=== PATIENT | male | born 1970 | race Caucasian/White ===

== ENCOUNTER 2018-12-25 12:42 | Day surgery (SDC) | payer MEDICAID ==
[2018-12-25] MEDS ORDERED: LIDO/EPI 1% **Not for Epidural 20 ML MDV ONE (12:44)
[2018-12-25] MEDS ORDERED: LIDOCAINE 1% 300 MG/30 ML SDV ONE (12:45)
[2018-12-25] MEDS ORDERED: EPINEPHrine 30 MG/30 ML MDV (0.1 MG/0.1 ML) ONE (12:45)
[2018-12-25] MEDS ORDERED: OXYMETAZOLINE 30 ML NASAL SPRAY ONE ×2 (12:46→13:26)
[2018-12-25] MEDS ORDERED: LR 1,000 ML IV ONE (13:02)
[2018-12-25 13:31] LABS: PLATELET COUNT 174 10^3/uL (150-400)
[2018-12-25 13:39] LABS: INR 0.96 (0.83-1.16); PROTIME(PATIENT) 12.4 SEC (12.0-15.0)
--- NOTE | 2018-12-25 15:04 | PDGENHP ---
History & Physical Chief Complaint: Nasal obstruction History of Present Illness: septal deviation, trubinate hypertrophy Pertinent Past, Social, Family History: Reviewed Relevant Physical Exam: A&O, NAD. Nasal obstruction Cardiorespiratory Assessment: Appropriate for procedure.
[2018-12-25] MEDS ORDERED: OXYMETAZOLINE 30 ML NASAL SPRAY EACHNARE ONE (16:00)
--- NOTE | 2018-12-25 16:08 | PDANEPAE ---
ANE Past Medical History - Cardiovascular History Hx Hypertension: No Hx Arrhythmias: No Hx Chest Pain: No Hx Coronary Artery / Peripheral Vascular Disease: No Hx CHF / Valvular Disease: No Hx Palpitations: No Cardiovascular History Comment: elevated HR with colonoscopy- was sent to ER for rehydration - Pulmonary History Hx COPD: No Hx Asthma/Reactive Airway Disease: No Hx Recent Upper Respiratory Infection: No Hx Oxygen in Use at Home: No Hx Sleep Apnea: Yes Sleep Apnea Screening Result - Last Documented: Negative Pulmonary History Comment: pt states "he is sob at times". chronic cough from reflux - Neurologic History Hx Cerebrovascular Accident: No Hx Seizures: No Hx Dementia: No Neurologic History Comment: 2012 with onset of pancreatitis, he feels like he had a seizure/ convulsions d/t electrolyte imbalance - Endocrine History Hx Diabetes: No - Renal History Hx Renal Disorders: No - Liver History Hx Hepatic Disorders: Yes Hepatic History Comment: Alcohol-induced cirrhosis - Neurological & Psychiatric Hx Hx Neurological and Psychiatric Disorders: Yes Neurological / Psychiatric History Comment: hx of depression. anxiety - Cancer History Hx Cancer: No - Congenital Disorder History Hx Congenital Disorders: No - GI History Hx Gastrointestinal Disorders: Yes Gastrointestinal History Comment: severe reflux per pt report. Hx Pancreatitis. Alcoholic gastritis. chronic diarrhea - Other Health History Other Health History: wears reading glasses - Chronic Pain History Chronic Pain: Yes (back) - Surgical History Prior Surgeries: tonsillectomy. hernia repair 20 yrs ago. hernia repair 2017. pin to right thumb. colonoscopy. pe tubes as child ANE Review of Systems Review of Systems: - Exercise capacity METS (RN): 4 METS ANE Patient History - Allergies Allergies/Adverse Reactions: amoxicillin [Amoxicillin] Allergy (Verified 12/24/18 16:51) Abdominal Cramping Penicillins Allergy (Verified 12/24/18 16:51) Abdominal Cramping shellfish Allergy (Uncoded 12/24/18 17:04) Abdominal Cramping - Home Medications Home Medications: Omeprazole BID 05/20/12 [Last Taken 12/24/18] Lipase/Protease/Amylase [Pancrease Mt-20 EC Capsule] TIDMEAL 05/01/13 [Last Taken 12/24/18] Ranitidine HCl 03/28/18 [Last Taken 12/24/18] Biotene (*) 12/24/18 [Last Taken 12/24/18] Vitamin D2 12/24/18 [Last Taken 12/20/18] - NPO status NPO Since - Liquids (Date): 12/25/18 NPO Since - Liquids (Time): 10:45 NPO Since - Solids (Date): 12/25/18 NPO Since - Solids (Time): 02:30 - Smoking Hx Smoking Status: Heavy smoker - Family Anes Hx Family Hx Anesthesia Complications: none ANE Labs/Vital Signs - Labs Result Diagrams: 12/25/18 13:17 12/25/18 13:17 - Vital Signs Blood Pressure: 158/100 Heart Rate: 101 Respiratory Rate: 15 O2 Sat (%): 96 Height: 175.26 cm Weight: 79.379 kg ANE Physical Exam - Airway Mallampati Score: Class 1 - ASA Status ASA Status: III ANE Anesthesia Plan Anesthesia Plan: general endotracheal anesthesia
[2018-12-25] MEDS ORDERED: MIDAZOLAM 2 MG/2 ML VIAL ONE (16:11)
[2018-12-25] MEDS ORDERED: fentaNYL 100 MCG/2 ML INJ ONE ×2 (16:12→18:09)
[2018-12-25] MEDS ORDERED: PROPOFOL 200 MG/20 ML VIAL ONE (16:12)
[2018-12-25] MEDS ORDERED: ONDANSETRON 4 MG/2 ML VIAL ONE (16:13)
[2018-12-25] MEDS ORDERED: DEXAMETHASONE 4 MG/ML VIAL ONE (16:13)
[2018-12-25] MEDS ORDERED: METOCLOPRAMIDE 10 MG/2 ML VIAL ONE (16:13)
[2018-12-25] MEDS ORDERED: ROCURONIUM 50 MG/5 ML VIAL ONE (16:13)
[2018-12-25] MEDS ORDERED: BACITRACIN ZINC 0.5 OZ OINTTUBE TP ONE (17:21)
[2018-12-25] MEDS ORDERED: fentaNYL 100 MCG/2 ML INJ IVP PRN (17:45)
[2018-12-25] MEDS ORDERED: NALOXONE HCL 0.4 MG/ML INJ IVP PRN (17:45)
[2018-12-25] MEDS ORDERED: PROMETHAZINE HCL 25 MG/ML INJ IVP PRN (17:45)
[2018-12-25] MEDS ORDERED: HYDROmorphONE/DILAUDID 1 MG/ML INJ IVP PRN (17:45)
[2018-12-25] MEDS ORDERED: MEPERIDINE 25 MG/0.5 ML AMP IVP PRN (17:45)
[2018-12-25] MEDS ORDERED: LR 500 ML IV PRN (17:45)
--- NOTE | 2018-12-25 17:47 | POSTOPPROG ---
Post Op Note Date of Operation: 12/25/18 Surgeon: Israel Chang Anesthesia: GET(General Endotracheal) Pre-op Diagnosis: Septal devation, Inferior turbinate hypertrophy Post-op Diagnosis: Septal devation, Inferior turbinate hypertrophy Indication: Septal devation, Inferior turbinate hypertrophy Procedure: Endoscopic septoplasty, Inferior turbinate SMR and outfx Findings: Septal devation, Inferior turbinate hypertrophy Inf/Abcess present in the surg proc area at time of surgery?: No Depth: Deep Incisional (Fascial) EBL: Minimal Complications: none Bowel Protocol: N/A Clean Closure Performed: N/A Specimen(s): none
--- NOTE | 2018-12-25 17:48 | POSTANESTH ---
Post Anesthetic Evaluation Cardiovascular Status: Normal, Stable Respiratory Status: Normal, Stable Level of Consciousness/Mental Status: Can Participate in Eval Pain Control: Adequate, Prn Tx Ordered Nausea/Vomiting Control: Adequate, Prn Tx Ordered Complications Possibly Related to Anesthesia: None Noted
[2018-12-25 18:37] VITALS: BP 142/96
== END 2018-12-25 18:52 | disposition home or self-care (01) ==
LOC: FSGY 12:42
PROVIDERS: ATTEND Otolaryngology
DX: J34.2 Deviated nasal septum (principal); J34.3 Hypertrophy of nasal turbinates; G47.33 Obstructive sleep apnea (adult) (pediatric)
CPT/HCPCS: J0171; J1100; J2250; J2405; J2704; J2765; J3010